=== PATIENT | male | born 1990 | race Hispanic/Latino ===

== ENCOUNTER 2020-11-09 14:27 | Emergency (ER) | payer OTHER, SELFPAY ==
[2020-11-09 14:28] VITALS: BP 123/64; PULSE 54; RESP 15; TEMP 36.6; O2SAT 97; BMI 21.7
--- NOTE | 2020-11-09 14:42 | EKG12_ITS ---
Test Reason : PALPS Blood Pressure : / mmHG Vent. Rate : 052 BPM Atrial Rate : 052 BPM P-R Int : 162 ms QRS Dur : 114 ms QT Int : 422 ms P-R-T Axes : 055 078 056 degrees QTc Int : 392 ms Sinus bradycardia Minimal voltage criteria for LVH, may be normal variant Early repolarization Borderline ECG Confirmed by PETRA BLACK, SHERRY ([id number]), editorial project manager CHAGO MORENO ([id number]) on 11/12/2020 2:54:52 PM Referred By: ELISEO Confirmed By:DONELL LAMBERT MD
--- NOTE | 2020-11-09 14:48 | ED.VIS.GEN ---
History of Present Illness Chief Complaint: Palpitations Informant: Patient Narrative: Patient is a 30-year-old previously healthy male who presents to the emergency department for intermittent palpitations. He states it started around noon today. He was sitting at his desk whenever this started. He does not know aggravating or relieving factors. He has had these randomly before in the past. He felt like he might of gotten some very mild chest tightness but this since resolved as well. He denies any shortness of breath. He is not having any symptoms currently. He denies any pain or swelling in his legs. No recent illness including any fever/chills or cough, cold, congestion. He denies any nausea/vomiting or change in bowel movements. No urinary symptoms. He denies any alcohol, cigarette use. Does admit to occasional marijuana use. He did google some of his symptoms which he felt might have made his palpitations slightly worse at that time. Past Medical History - Allergies and Home Meds Allergies/Adverse Reactions: Allergies No Known Allergies Allergy (Verified 11/09/20 14:31) Primary Care Physician: Dennis Mcfarland MD [STAFF PHYSICIAN] - 3-5 Days Ayden Whalen MD [NON-STAFF] - As soon as possible NOT,DEFINED [NON-STAFF] - Prior records reviewed: Yes Past Medical History: None Surgical History: noncontributory Smoking Status: Never smoker Review of Systems All systems negative except as indicated General: Denies: Chills, Fever, Sweats Eyes: Denies: Visual changes - bilaterally, Diplopia ENT: Denies: Rhinorrhea, Sore throat Cardiovascular: Reports: Palpitations. Denies: Chest pain Respiratory: Denies: Dyspnea, Cough, Dyspnea on exertion Gastrointestinal: Denies: Abdominal pain, Nausea, Vomiting, Diarrhea Genitourinary: Denies: Dysuria, Hematuria, Frequency Musculoskeletal: Denies: Back pain, Extremity Pain Skin: Denies: Rash, Wounds Neurological: Denies: Headache, Weakness, Numbness Physical Exam Vital Signs/Narrative: Vital Signs Temp Pulse Resp BP Pulse Ox 11/09/20 14:28 97.8 F 54 L 15 123/64 H 97 Inital Vital Signs reviewed: Yes General: Well nourished, Well developed, No Acute Distress Head: Normocephalic, Atraumatic Eyes: Perrl, EOMI ENT: Moist mucous membranes, No rhinorrhea Neck: Supple, Nontender Cardiovascular: Regular rhythm, No murmurs, Bradycardia Respiratory: No distress, CTA bilaterally, Chest nontender Abdomen: Soft, Nontender, Nondistended, Normal bowel sounds Back: Nontender, Normal Inspection Extremities: Nontender, No edema. Negative for: Calf Tenderness Skin: Normal color, No rash Neurological: Alert, Oriented x3, Cranial nerves II-XII grossly intact, Normal Strength, Normal Sensation Psychological: Normal affect, Normal Mood Diagnostic/Tx/Re-eval Chest X-Ray - ED: 1 View - Single view portable x-ray interpreted by myself. Clear lung farias bilaterally. No large effusion present. Normal cardiac silhouette. Normal mediastinum. Agree with radiologist interpretation. - EKG Initial EKG Interpretation: - - Rate of 52 bpm and a sinus bradycardia. Normal intervals. Normal axis. Patient has a benign early repolarization pattern with the ST minimally elevated. No signs of acute ischemia. No T wave abnormalities. - Medical Decision Making Patient presents to the ED for palpitations. Upon arrival to the emergency department he is borderline bradycardic. He states he does play tennis and does yoga regularly. He is not currently having any active symptoms. Patient placed on conventional mortgage underwriter. Will check EKG, basic lab work and chest x-ray. He otherwise has a benign physical exam. Patient's lab work did not reveal any significant acute abnormality. Electrolytes within normal limits. Troponin is negative. He is not anemic. On EKG he has benign early repolarization but no evidence of acute ischemia or arrhythmia. He was observed on the conventional mortgage underwriter. His heart rate did fluctuate in the 50s but never went into any abnormal heart rhythm. At this time I do feel he stable for discharge. I spoke to his mother who is a physician as well. She did request a referral for cardiology and she was provided 1. He may benefit from wearing a Holter monitor if his symptoms continue. Return precautions are reviewed with him including any worsening symptoms, developing chest pain or shortness of breath. He understands and is agreeable this plan. All questions answered. ED Disposition - Plan for ED Patient: Disposition: Home or Assisted Living Diagnosis: Palpitations Instructions: ED Palpitations Referrals: NOT,DEFINED [NON-STAFF] - Ayden Whalen MD [NON-STAFF] - As soon as possible Dennis Mcfarland MD [STAFF PHYSICIAN] - 3-5 Days
[2020-11-09 14:50] VITALS: O2SAT 98
--- NOTE | 2020-11-09 14:50 | RAD_ITS ---
STUDY: X-RAY CHEST REASON FOR EXAM: Male, 30 years old. Palpitations TECHNIQUE: Single AP portable view of the chest. COMPARISON: None. FINDINGS: EKG leads overlie the chest The lungs are clear and expanded. There is no demonstrated pleural abnormality. Normal size heart. Normal mediastinum and nitesh. Normal visualized pulmonary arteries. Normal visualized aortic arch and descending thoracic aorta. Normal visualized thoracic spine. Normal visualized ribs, clavicles, and shoulders. There is no demonstrated abnormality of the visualized soft tissue structures of the upper abdomen. RAD/Chest 1 View (Portable) IMPRESSION: Normal x-ray examination of the chest. Electronically Signed: Scott Hernandez MD at 15:10 EDT , Service support ,
[2020-11-09 15:19] LABS: Absolute Lymphocyte Count 2.08 X10^3/uL (0.83-4.51); Absolute Neutrophil Count 2.5 X10^3/uL (2.0-7.7); Basophil# 0.02 X10^3/uL; Basophil% 0.4 % (0-1); Eosinophil# 0.15 X10^3/uL; Eosinophils% 2.9 % (0-5); Hematocrit 40.9 % (40-54); Hemoglobin 13.2 g/dL (13.0-16.5); Lymphocyte # 2.08 X10^3/ul (4.0); Lymphocyte % 40.2 % (19-41); Mean Corp Hgb Conc 32.3 g/dL (32-36); Mean Corpuscular Hgb 26.3 pg (27.0-32.0); Mean Corpuscular Volume 81.5 fL (80-94); Mean Platelet Vol. 11.4 fl (6.2-12.0); Monocyte# 0.37 X10^3/uL; Monocyte% 7.2 % (0-10); NRBC Flagged by Analyzer 0 % (0-5); Neutrophil # 2.54 X10^3/uL (2.7-7.7); Neutrophil % 49.1 % (47-70); Platelet Count 231 K/mm3 (150-450); RBC Distribution Width CV 12.8 % (11.6-14.6); RBC Distribution Width SD 38.2 fl (35.1-43.9); Red Blood Count 5.02 M/mm3 (4.6-6.2); White Blood Count 5.2 K/mm3 (4.4-11.0)
[2020-11-09 15:28] VITALS: PULSE 52; RESP 18; O2SAT 100
[2020-11-09 15:43] LABS: Anion Gap 2 (5-15); BUN 17 mg/dL (7-18); BUN/Creat Ratio 15.5 RATIO (10-20); Chloride 107 mmol/L (98-107); EST Glomerular Filtration Rate 83 mL/min (>60); Est Glom Filt Rate - Afr Amer 101 mL/min (>60); Glucose 81 mg/dL (74-106); Magnesium 2.3 mg/dL (1.6-2.6); Potassium 4.1 mmol/L (3.5-5.1); Sodium Level 138 mmol/L (136-145)
[2020-11-09 16:03] VITALS: PULSE 47; RESP 18; O2SAT 99
== END 2020-11-09 16:06 | disposition home or self-care (01) ==
PROVIDERS: Emergency Provider Emergency Medicine
DX: R00.2 Palpitations (principal)
CPT/HCPCS: 71045; 80048; 83735; 84484; 85025; 93005; 99284; A4216

== ENCOUNTER → 2021-01-28 15:09 | Outpatient (CLI) | payer OTHER, SELFPAY ==
[2021-01-19 12:50] VITALS: BMI 21.4
--- NOTE | 2021-01-28 15:11 | ECHOD_ITS ---
Reason For Study: Arrhythmia Procedure This was a 2D Doppler, Color Flow transthoracic echocardiogram. Exam performed in department. Left Ventricle Normal LV size. Left ventricular systolic function is normal. The estimated ejection fraction is 55 %. Normal diastology for age. No regional wall motion abnormalities noted. Right Ventricle Normal RV size. Normal systolic function. Atria Normal left atrium. Normal right atrium. Mitral Valve Normal mitral valve. Mild (1+) eccentric mitral valve insufficiency. Tricuspid Valve Normal tricuspid valve. Trivial tricuspid valve insufficiency. Aortic Valve Normal aortic valve. Trisinus/trileaflet aortic valve. Pulmonic Valve Normal pulmonic valve. Great Vessels Normal aortic root. The pulmonary artery is normal size. Normal inferior vena cava. Pericardium/Pleural No pericardial effusion. MMode/2D Measurements & Calculations LVIDd: 5.0 cm IVSd: 0.85 cm LA dimension: 3.1 cm LVIDs: 3.1 cm LVPWd: 1.0 cm RVDd: 4.6 cm FS: 38.5 % LAV(MOD-bp): 55.2 ml LA A4 area: 20.5 cm2 RA A4 area: 20.7 cm2 LAV(MOD-bp) Indexed: 30.6 ml/m2 LAV(MOD-sp2): 45.8 ml LAV(MOD-sp4): 58.8 ml Time Measurements MV dec time: 0.30 sec Doppler Measurements & Calculations MV E max bharat: 82.0 cm/sec Lat Peak E' Bharat: 12.2 cm/sec Med Peak E' Bharat: 14.7 cm/sec MV A max bharat: 38.8 cm/sec E/E' lat: 6.7 E/E' med: 5.6 MV E/A: 2.1 MV V2 max: 80.3 cm/sec MV P1/2t max bharat: 79.8 cm/sec Ao V2 max: 148.1 cm/sec MV max P.6 mmHg MV P1/2t: 156.7 msec Ao max P.8 mmHg MV V2 mean: 40.4 cm/sec MV dec slope: 149.2 cm/sec2 MV mean P.81 mmHg MVA(P1/2t): 1.4 cm2 MV V2 VTI: 35.8 cm LV V1 max: 124.7 cm/sec PA V2 max: 129.0 cm/sec TR max bharat: 188.9 cm/sec LV V1 max P.2 mmHg TR max P.3 mmHg ECHO/Echo Complete Interpretation Summary Normal LV size. Left ventricular systolic function is normal. The estimated ejection fraction is 55 %. Structurally normal valves. Ordering Physician: Fabio Bonilla Referring Physician: No PCP noted Performed By: Rachid Alegre RCS
== END ==
PROVIDERS: Referring Provider Internal Medicine Cardiovascular Disease; Visit Provider Internal Medicine Cardiovascular Disease
DX: R00.2 Palpitations (principal)
CPT/HCPCS: 93306